=== PATIENT | female | born 1955 | race Two or more races ===

== ENCOUNTER 2017-11-25 23:47 | Emergency (ER) | payer MEDICARE, OTHER ==
[2017-11-26] MEDS: KETOROLAC 15 MG INJ IM (00:33)
== END 2017-11-26 10:52 | disposition home or self-care (01) ==
LOC: FTE 23:47
DX: G89.29 Other chronic pain (principal); I10 Essential (primary) hypertension
CPT/HCPCS: 96372; 99284-25

== ENCOUNTER 2017-11-26 22:56 | Emergency (ER) | payer MEDICARE, OTHER ==
[2017-11-26] MEDS: KETOROLAC 60 MG INJ IM (23:45)
== END 2017-11-27 00:04 | disposition home or self-care (01) ==
LOC: FTE 11-27 00:04
DX: G89.29 Other chronic pain (principal); I10 Essential (primary) hypertension
CPT/HCPCS: 96372; 99284-25